=== PATIENT | female | born 1945 | race Hispanic/Latino ===

== ENCOUNTER 2016-12-05 06:59 | Outpatient (CLI) | payer MEDICARE ==
[2016-12-05 08:26] LABS: ALT (SGPT) 31 U/L (0-55); AST (SGOT) 28 U/L (5-34); Albumin 3.8 g/dL (3.4-4.8); Alkaline Phosphatase 87 U/L (40-150); Anion Gap 15 mmol/L (10-20); BUN (Urea Nitrogen) 11 mg/dL (9.8-20.1); Bilirubin, Total 0.5 mg/dL (0.2-1.2); Calc. Creatinine Clearance 0 mL/min (70-130); Calcium 10.2 mg/dL (7.8-10.44); Carbon Dioxide 26 mmol/L (23-31); Cardiac Risk 3.1 (Less than 4.5); Chloride 102 mmol/L (98-107); Cholesterol 120 mg/dL (< 200 Desired); Estimated GFR-MDRD 71; Globulin 2.6 g/dL (2.4-3.5); Glucose 115 mg/dL (83-110); HDL Cholesterol 39 mg/dL (>60 Neg Risk); LDL Cholesterol, Calculated 54 mg/dL; Potassium 4.7 mmol/L (3.5-5.1); Protein, Total 6.4 g/dL (5.8-8.1); Sodium 138 mmol/L (136-145); Triglycerides 135 mg/dL (Less than 150)
[2016-12-05 08:30] LABS: %Basophils 1.6 % (0.0-1.0); %Eosinophils 4.6 % (0.0-10.0); %Lymphocytes 32.3 % (21.0-51.0); %Monocytes 7.2 % (0.0-10.0); %Neutrophils 54.3 % (42.0-75.0); Hemoglobin 14.2 g/dL (12.0-16.0); Mean Corpuscular HGB CONC 33.5 g/dL (32.0-36.0); Mean Corpuscular Hemoglobin 30.7 pg (27.0-31.0); Mean Corpuscular Volume 91.5 fL (81.0-99.0); Mean Platelet Volume 14.7 fL (7.4-10.4); Platelet Count 174 thou/uL (130-400); RBC Distribution Width 12.2 % (11.5-14.5); Red Blood Cell (RBC) Count 4.64 mill/uL (4.20-5.40); White Blood Cell (WBC) Count 8.1 thou/uL (4.8-10.8)
[2016-12-05 08:31] LABS: #Basophils 0.1 thou/uL (0.0-0.2); #Eosinphils 0.4 thou/uL (0.0-0.7); #Lymphocytes 2.6 thou/uL (1.20-3.40); #Monocytes 0.6 thou/uL (0.11-0.59); #Neutrophils 4.4 thou/uL (1.40-6.50)
== END 2016-12-05 07:00 ==
LOC: MADLABBHPM 06:59
PROVIDERS: ATTEND Family Medicine
DX: I10 Essential (primary) hypertension (principal)
CPT/HCPCS: 36415; 80053; 80061; 85025

== ENCOUNTER 2017-01-26 09:54 | Outpatient (CLI) | payer MEDICARE ==
[2017-01-26 11:12] LABS: ALT (SGPT) 27 U/L (8-55); AST (SGOT) 25 U/L (5-34); Alkaline Phosphatase 87 U/L (40-150); Anion Gap 14 mmol/L (10-20); BUN (Urea Nitrogen) 11 mg/dL (9.8-20.1); Bilirubin, Total 0.5 mg/dL (0.2-1.2); Calc. Creatinine Clearance 0 mL/min (70-130); Calcium 10.3 mg/dL (7.8-10.44); Carbon Dioxide 24 mmol/L (23-31); Chloride 105 mmol/L (98-107); Estimated GFR-MDRD 71; Globulin 2.8 g/dL (2.4-3.5); Glucose 122 mg/dL (83-110); Potassium 4.2 mmol/L (3.5-5.1); Protein, Total 6.8 g/dL (6.0-8.3); Sodium 139 mmol/L (136-145)
[2017-01-26 11:24] LABS: Red Blood Cell (RBC) Count 4.81 mill/uL (4.20-5.40); White Blood Cell (WBC) Count 9.3 thou/uL (4.8-10.8)
[2017-01-26 11:25] LABS: #Basophils 0.1 thou/uL (0.0-0.2); #Eosinphils 0.5 thou/uL (0.0-0.7); #Lymphocytes 2.3 thou/uL (1.20-3.40); #Monocytes 0.7 thou/uL (0.11-0.59); #Neutrophils 5.7 thou/uL (1.40-6.50); %Basophils 1.6 % (0.0-1.0); %Lymphocytes 24.5 % (21.0-51.0); %Monocytes 7.4 % (0.0-10.0); %Neutrophils 61.5 % (42.0-75.0); Mean Corpuscular HGB CONC 34.2 g/dL (32.0-36.0); Mean Corpuscular Hemoglobin 31.1 pg (27.0-31.0); Mean Corpuscular Volume 91.2 fL (81.0-99.0); Mean Platelet Volume 12.8 fL (7.4-10.4); Platelet Count 180 thou/uL (130-400); RBC Distribution Width 12.2 % (11.5-14.5)
--- NOTE | 2017-01-26 11:42 | RAD ---
PA AND LATERAL VIEWS CHEST: HISTORY: Hemoptysis. FINDINGS: The heart size is normal. The aorta is tortuous. The lungs are expanded with a mass-like density i n the right upper medial chest. No pneumothoraces or pleural effusions are seen. There are degener ative changes in the spine. IMPRESSION: Mass-like density in the right upper chest. Further evaluation with contrast-enhanced CT scan of th e chest is recommended. CODE T POS: DANN
[2017-01-26 11:48] LABS: PTT 30.9 SEC (22.9-36.1); Prothrombin Time 13.5 SEC (12.0-14.7)
[2017-01-26] MEDS ORDERED: Iopamidol 370 76% 100 ML VIAL ONE (12:08)
--- NOTE | 2017-01-26 14:09 | CT ---
CHEST CT SCAN WITH IV CONTRAST: HISTORY: A 71-year-old female with abnormal chest x-ray and hemoptysis for 2 months. There is a 4.3 x 4.6 cm diameter mass involving the lower pole of the left lobe of the thyroid exten ding into the rectal sternal region. There is a right supraclavicular abnormally enlarged lymph nod e measuring 1.2 cm in short axis. There are smaller nodules in the partially visualized right lobe of the thyroid. There is a very large poorly circumscribed right lung mass involving the right hilu m and extending superiorly into the right apex. This mass measures 4.2 x 4.6 x 7.1 cm with extensio n into the right hilum with some associated pulmonary artery encasement. There are abnormally enlar ged mediastinal lymph nodes including a right-sided prevascular node up to 1.3 cm, a right paratrach eal node up to 2.0 cm, with enlarged right hilar nodes up to 1.3 cm short axis. There are several s cattered areas of nonspecific ground-glass opacity in the right upper lobe and right middle lobe as well as several right-sided pulmonary nodules up to 0.5 cm in size, early metastatic disease certain ly is a consideration. There are some small robert hepatis lymph nodes. Levoscoliosis of the lumbar thoracic spine. IMPRESSION: Large right upper lobe suprahilar mass with right hilar and mediastinal lymphadenopathy, evidence fo r primary lung carcinoma. Large left lobe of thyroid mass. Mostly right-sided patchy nonspecific s mall areas of ground-glass opacity as well as right-sided pulmonary nodules up to 0.5 cm. Metastati c disease is a consideration. Enlarged right supraclavicular lymph node. CODE T POS: TRE
== END 2017-01-26 09:55 | disposition home or self-care (01) ==
LOC: MADLABBHPM 09:54
PROVIDERS: ATTEND Family Medicine
DX: R04.2 Hemoptysis (principal)
CPT/HCPCS: 36415; 71020; 71260; 80053; 85025; 85610; 85730; 86480